=== PATIENT | female | born 1975 | race Caucasian/White ===

== ENCOUNTER 2018-04-27 07:27 | Day surgery (SDC) | payer BC ==
[2018-04-26 16:09] VITALS: BMI 29.2
[2018-04-27] MEDS ORDERED: PROMETHAZINE HCL 25 MG/1 ML VIAL IVPB PRN (08:20)
[2018-04-27] MEDS ORDERED: ONDANSETRON 4 MG/2 ML VIAL IVPUSH PRN (08:20)
[2018-04-27] MEDS ORDERED: oxyCODONE HCL 5 MG TABLET PO PRN (08:20)
[2018-04-27] MEDS ORDERED: LACTATED RINGERS SOLUTION 1,000 ML IV SCH (08:30)
[2018-04-27 15:46] VITALS: BP 104/74; PULSE 81; TEMP 97.9
--- NOTE | 2018-04-28 09:13 | OP ---
DATE OF OPERATION: 04/27/2018 PREOPERATIVE DIAGNOSIS: Irregular menses, endometrial polyp. POSTOPERATIVE DIAGNOSIS: Irregular menses, endometrial polyp, and fibroid uterus. PROCEDURE: Dilatation and curettage, hysteroscopy. SURGEON: Mehdi Negrete DO ANESTHESIA: General. INTRAVENOUS FLUID: 200 mL. DISTENSION MEDIA: In 200 mL, out 200 mL. DISTENSION MEDIA DEFICIT: 0.. ESTIMATED BLOOD LOSS: 25 mL. SPECIMEN: Endometrial lining, polyp. COMPLICATIONS: None. FINDINGS: Examination under anesthesia revealed the uterus to be 10-12 weeks size, retroverted, with normal bilateral adnexa. Hysteroscopy showed questionable pedunculated polyp on the posterior wall. Bilateral ostia appeared to be normal. DESCRIPTION OF PROCEDURE: Risks, benefits, and alternatives were discussed with the patient. Following a long discussion, patient verbalizes understanding and agreed. The patient was taken to the operating room where general anesthesia was administered without difficulty. She was placed in the dorsal lithotomy position, prepped and draped in the usual sterile fashion. A weighted speculum was inserted into the posterior aspect of the vagina. A single-tooth tenaculum was used to grab the anterior lip of the cervix. The uterus was carefully sounded to 9 cm. The cervix was sequentially dilated to accommodate the hysteroscope using the dilators. Subsequently, the hysteroscope was inserted or introduced under direct visualization. The uterus was distended with saline. The aforementioned findings were noted. The hysteroscope was withdrawn, and the cervix was further dilated to accommodate sharp curettage. The uterus was curettaged in a clockwise fashion until gritty-like sensation was noted in all aspects of the uterus. Polyp forceps was used to retrieve the polyp that was obtained during curettage. The polyp and the endometrial scrapings were sent to Pathology. The tenaculum was removed from the cervix with excellent hemostasis at the puncture site. The patient tolerated the procedure well. The instrument and sponge counts were correct x2. The patient was awakened from general anesthesia and taken to the recovery room in stable condition. The patient will go home after recovering from anesthesia and meeting all criteria for discharge. She was given instructions regarding followup visit in [address] Negrete. DO [facility] Mendoza/[id number]
--- NOTE | 2018-04-30 15:03 | PATH ---
Surgical Pathology Report Patient Name: HONEY JACOB [facility]. Rec. #: [id number] /Age/Gender: 1975 (Age: 42) / F Account: [id number] Location: [facility] SURGICAL Taken: 04/27/2018 Received: 04/27/2018 Reported: 04/30/2018 Physicians: Mehdi Negrete DO Specimen(s) Received A: ENDOMETRIAL CURETTINGS B: ENDOCERVICAL CURETTINGS Clinical History Endometrial thickening Final Diagnosis A. ENDOMETRIAL CURETTINGS, DILATION AND CURETTAGE: POLYPOID FRAGMENTS OF PROLIFERATIVE ENDOMETRIUM SUGGESTIVE OF POLYP. BENIGN ENDOCERVICAL TISSUE. B. ENDOCERVICAL CURETTINGS, DILATION AND CURETTAGE: FRAGMENTS OF CERVICAL MUCOSA AND PROLIFERATIVE ENDOMETRIUM. Electronically Signed Jeana Ribera M.D. Gross Description A. Received in formalin, labeled "endometrial curettings" are multiple shah, irregular portions of soft tissue measuring 2.5 x 2.5 x 0.3 cm in aggregate. The specimens are submitted in toto in two cassettes. B. Received in formalin, labeled "endocervical curettings" are multiple dark brown portions of soft tissue measuring 1 x 1 x 0.2 cm in aggregate. The specimens are submitted in toto in 1 cassette. SHAHID/04/27/2018 keo/04/27/2018
== END 2018-04-27 12:30 | disposition home or self-care (01) ==
LOC: JASU-SURG 07:27
PROVIDERS: ATTEND Obstetrics & Gynecology
PROC: 0UDB7ZX Extraction of Endometrium, Via Natural or Artificial Opening, Diagnostic (ICD-10-PCS; principal; 2018-04-27 08:30)
PROC: 0UJD8ZZ Inspection of Uterus and Cervix, Via Natural or Artificial Opening Endoscopic (ICD-10-PCS; 2018-04-27 08:30)
DX: N93.8 Other specified abnormal uterine and vaginal bleeding (principal); N84.0 Polyp of corpus uteri; D25.9 Leiomyoma of uterus, unspecified
CPT/HCPCS: 84703; 88305-TC; 94760